=== PATIENT | male | born 1950 | race Caucasian/White ===

== ENCOUNTER 2018-02-07 10:03 | Day surgery (SDC) | payer MEDICARE, BC ==
[2018-02-07] MEDS: NS 1,000 ML IV (10:12)
[2018-02-07] MEDS ORDERED: PROPOFOL 200 MG/20 ML VIAL As Ordered (10:44)
== END 2018-02-07 11:12 | disposition home or self-care (01) ==
LOC: M OPP 10:03
DX: Z12.11 Encounter for screening for malignant neoplasm of colon (principal); Z86.010 Personal history of colon polyps; K64.0 First degree hemorrhoids; K57.30 Diverticulosis of large intestine without perforation or abscess without bleeding; E78.00 Pure hypercholesterolemia, unspecified; Z79.82 Long term (current) use of aspirin; Z79.899 Other long term (current) drug therapy; Z83.3 Family history of diabetes mellitus
CPT/HCPCS: G0105

== ENCOUNTER → 2025-01-31 | Outpatient (REF) | payer MEDICARE ==
[~2025-01-31] MED LIST: ASPI81TA86 PO; ROSU5TAB49 PO; VITA-122 PO
[2025-01-31 13:54] LABS: APPEARANCE, URINE CLEAR (CLEAR); BACTERIA, URINE AUTO NEGATIVE (NEGATIVE); BILIRUBIN, URINE AUTO NEGATIVE (NEGATIVE); BLOOD, URINE BLOOD NEGATIVE (NEGATIVE); GLUCOSE, URINE (UA) AUTO NEGATIVE (NEGATIVE); KETONE, URINE AUTO NEGATIVE (NEGATIVE); LEUKOCYTE ESTERASE, URINE AUTO NEGATIVE (NEGATIVE); MUCUS, URINE SMALL (NEGATIVE); NITRITE, URINE AUTO NEGATIVE (NEGATIVE); PROTEIN, URINE AUTO NEGATIVE (NEGATIVE); RBC, URINE AUTO 0 /HPF (0-3); SPECIFIC GRAVITY URINE AUTO 1.012 (1.002-1.035); SQUAMOUS EPITHELIAL CELL UR AU 0 /HPF (0-6); UROBILINOGEN, URINE AUTO 0.2 mg/dL (0.0-2.0); WBC, URINE AUTO 1 /HPF (0-3)
== END ==
LOC: M SMT 13:15
PROVIDERS: ATTEND Urology
DX: N20.0 Calculus of kidney (principal)

== ENCOUNTER 2025-06-09 08:52 | Day surgery (SDC) | payer MEDICARE ==
[~2025-06-09] VITALS: Ht 172.7 cm; Wt 90.3 kg
[~2025-06-09 08:52] MED LIST changes: +ECOT81TA5 PO; +ROSU10TA90 PO; +VITA100093 PO
[2025-06-09] MEDS ORDERED: LIDOCAINE 2% 100 MG/5 ML SDV (FOR ANES.) As Ordered ONE (10:02)
[2025-06-09] MEDS ORDERED: ONDANSETRON 4MG/2ML VIAL As Ordered ONE (10:02)
[2025-06-09] MEDS ORDERED: MIDAZOLAM INJ 2 MG/2 ML VIAL As Ordered ONE (10:03)
[2025-06-09 10:10] LABS: INR 0.98
[2025-06-09] MEDS: ceFAZolin SOD 2 GM IV ONCE IV ONE (10:26)
[2025-06-09] MEDS: ISOVUE-300 61% 100 ML VIAL As Ordered ONE (10:53)
[2025-06-09] MEDS ORDERED: PHENYLephrine 500MCG 5ML (100MCG/ML) SYRINGE As Ordered ONE (10:54)
[2025-06-09] MEDS ORDERED: KETOROLAC 30 MG/ML 1 ML VIAL As Ordered ONE (10:54)
[2025-06-09] MEDS ORDERED: ACETAMINOPHEN 1000MG/100ML IV BAG As Ordered ONE (10:54)
[2025-06-09] MEDS ORDERED: MORPHINE 2 MG/ML 1 ML VIAL IV PRN (11:50)
[2025-06-09] MEDS ORDERED: HYDROMORPHONE HCL 0.5 MG/0.5 ML SYRINGE IV PRN (11:50)
[2025-06-09] MEDS ORDERED: OXYB5TAB14 PO (11:59)
[2025-06-09] MEDS ORDERED: PYRI1TAB5 PO (11:59)
[2025-06-09] MEDS ORDERED: MACR100C43 PO (11:59)
[2025-06-09 13:17] VITALS: BP 141/78; TEMP 97.6; O2SAT 99
== END 2025-06-09 13:21 | disposition home or self-care (01) ==
LOC: M SDC 08:52
PROVIDERS: ATTEND Urology
DX: N20.0 Calculus of kidney (principal); E78.5 Hyperlipidemia, unspecified; Z79.899 Other long term (current) drug therapy
CPT/HCPCS: 36415; 52356; 74420; 85610; C1769; C2617; J0131; J0688; J1885; J2250; J2371; J2405; J3010; Q9967